=== PATIENT | male | born 1955 | race Hispanic/Latino ===

== ENCOUNTER 2020-10-27 14:44 | Emergency (ER) | payer BC, OTHER ==
[~2020-10-27] VITALS: Ht 167.6 cm; Wt 84.8 kg
[2020-10-27] MEDS ORDERED: LIDOCAINE HCL 1% LOCAL INJ 20 ML VIAL ONE (15:33)
[2020-10-27] MEDS ORDERED: BACITRACIN ZINC 0.9GM TP ONE ×2 (15:33→17:00)
[2020-10-27] MEDS ORDERED: TETANUS/DIPHTHERIA TOX ADULT 0.5 ML SYR ONE (15:34)
[2020-10-27] MEDS ORDERED: LISINOPRIL2.5 MG PO (16:56)
[2020-10-27] MEDS ORDERED: GLIMEPIRIDE4 MG (16:56)
[2020-10-27] MEDS ORDERED: METFORMIN HCL500 MG PO (16:56)
[2020-10-27] MEDS ORDERED: PIOGLITAZONE HC45 MG PO (16:56)
[2020-10-27] MEDS ORDERED: TETANUS/DIPHTHERIA TOX ADULT 0.5 ML SYR IM ONE (17:00)
[2020-10-27] MEDS ORDERED: LIDOCAINE HCL 1% LOCAL INJ 20 ML VIAL INJ ONE (17:00)
[2020-10-27] MEDS ORDERED: CEPHALEXIN500 MG PO (18:22)
[2020-10-27] MEDS ORDERED: AMOXICILLIN/CLAVULANATE K 875 MG TAB PO STA (18:27)
[2020-10-27] MEDS ORDERED: AMOXICILLIN/CLAVULANATE K 875 MG TAB ONE (18:36)
== END 2020-10-27 18:42 | disposition home or self-care (01) ==
LOC: FSED 15:47
DX: S91.311A Laceration without foreign body, right foot, initial encounter (principal); W29.8XXA Contact with other powered hand tools and household machinery, initial encounter; Y93.89 Activity, other specified; Y92.008 Other place in unspecified non-institutional (private) residence as the place of occurrence of the external cause; E11.9 Type 2 diabetes mellitus without complications
CPT/HCPCS: 12002; 73610; 90471; 90714; 96372; 99284; J2001